=== PATIENT | male | born 1985 | race Caucasian/White ===

== ENCOUNTER 2017-11-22 03:45 | Emergency (ER) | payer OTHER ==
[2017-11-22 03:54] VITALS: RESP 20; TEMP 98.8; O2SAT 98
--- NOTE | 2017-11-22 04:10 | C.PDOC ---
History Of Present Illness 32 year old male presents to the ED c/o right thumb pain and swelling. Patient reports that while at work he started experiencing pain to his right thumb that started getting progressively worse. Patient denies injury, fall, trauma, weakness, numbness. Time Seen by Provider: 11/22/17 03:55 Chief Complaint (Nursing): Upper Extremity Problem/Injury History Per: Patient History/Exam Limitations: no limitations Onset/Duration Of Symptoms: Hrs Current Symptoms Are (Timing): Still Present Quality: "Pain" Recent travel outside of the [place]: No Additional History Per: Patient Past Medical History Reviewed: Historical Data, Nursing Documentation, Vital Signs Vital Signs: Last Vital Signs Temp 98.8 F 11/22/17 03:50 Pulse 57 L 11/22/17 03:50 Resp 20 11/22/17 03:50 BP 126/87 11/22/17 03:50 Pulse Ox 98 11/22/17 04:12 - Medical History PMH: Asthma Surgical History: No Surg Hx Family History: States: Unknown Family Hx - Social History Hx Tobacco Use: No Hx Alcohol Use: Yes Hx Substance Use: No - Immunization History Hx Tetanus Toxoid Vaccination: No Hx Influenza Vaccination: No Hx Pneumococcal Vaccination: No Review Of Systems Constitutional: Negative for: Fever, Chills Cardiovascular: Negative for: Chest Pain, Palpitations Respiratory: Negative for: Cough, Shortness of Breath Musculoskeletal: Positive for: Hand Pain Skin: Negative for: Rash Neurological: Negative for: Weakness, Numbness Physical Exam - Physical Exam Appears: Non-toxic, No Acute Distress Skin: Normal Color, Warm, Dry Head: Atraumatic, Normacephalic Eye(s): bilateral: Normal Inspection Extremity: Normal ROM, Tenderness (IP joint right thumb), Capillary Refill (< 2 seconds), Swelling (minimal right thumb), Other (skin changes consistent with eczema, no warmth no erythema) Pulses: Left Radial: Normal, Right Radial: Normal Neurological/Psych: Oriented x3, Normal Speech, Normal Motor, Normal Sensation Gait: Steady ED Course And Treatment O2 Sat by Pulse Oximetry: 98 (ON RA) Pulse Ox Interpretation: Normal - Other Rad Rt hand X-Ray: Interpreted by Me, Viewed By Me Interpretation: No acute pathology Progress Note: Plan: - Motrin 600 mg PO. - right hand X-Ray. Patient is resting comfortably, and is in no acute distress. Patient was instructed to follow up with PMD in 1-2 days for further evaluation. 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 - Scribe Statement The provider has reviewed the documentation as recorded by the Scribe Ediwn Millan All medical record entries made by the Scribe were at my direction and personally dictated by me. I have reviewed the chart and agree that the record accurately reflects my personal performance of the history, physical exam, medical decision making, and the department course for this patient. I have also personally directed, reviewed, and agree with the discharge instructions and disposition.
[2017-11-22 04:52] VITALS: BP 128/60; PULSE 58
--- NOTE | 2017-11-22 08:01 | RAD ---
Date of service: 11/22/2017 PROCEDURE: Right Thumb radiographs. HISTORY: pain, swelling, thumb COMPARISON: None. TECHNIQUE: AP radiograph of the right hand, as well as spot oblique and lateral images of thumb were obtained. FINDINGS: RIGHT THUMB: Normal right thumb, without fracture or focal lesion. Remainder of the right hand (as seen on the AP view) grossly unremarkable. JOINTS: Normal. SOFT TISSUES: Normal. OTHER FINDINGS: None. IMPRESSION: No evidence of acute fracture or dislocation. No radiopaque foreign body noted.
== END 2017-11-22 04:50 | disposition home or self-care (01) ==
LOC: C.ER 03:45
DX: S63.601A Unspecified sprain of right thumb, initial encounter (principal); X58.XXXA Exposure to other specified factors, initial encounter; Y99.0 Civilian activity done for income or pay